=== PATIENT | female | born 1990 | race Caucasian/White ===

== ENCOUNTER 2020-05-23 10:36 | Outpatient (CLI) | payer OTHER, SELFPAY ==
--- NOTE | 2020-05-23 10:57 | ECG_ITS ---
Measurements Intervals [place] Rate: 66 P: 56 OK: 148 QRS: 46 QRSD: 99 T: 34 QT: 398 QTc: 417 Interpretive Statements SINUS RHYTHM INCOMPLETE RIGHT BUNDLE BRANCH BLOCK BORDERLINE ECG Electronically Signed On 05-23-2020 11:55:33 CDT by Meir Woodson D.O.
--- NOTE | 2020-05-26 12:25 | WPDHOLTEREM ---
Holter/Event Monitor Holter/Event Monitor Date of procedure: 05/23/20 Procedure Type: 48 hour holter monitor Indications: Palpitations Conclusion: 1. 48 hour holter monitor on 05/23/20. 2. Underlying rhythm is sinus rhythm. HR range 56-130 bpm; average HR 80 bpm. 3. There is 1 premature supraventricular complex. No supraventricular tachycardia. 4. There are 14 premature ventricular complexes. No ventricular tachycardia. 5. No sinoatrial or atrioventricular blocks. No significant pauses greater than 2 seconds. 6. No symptoms available for correlation.
== END 2020-05-23 10:37 | disposition home or self-care (01) ==
PROVIDERS: PCP Internal Medicine; Visit Provider Clinical Nurse Specialist
DX: R00.2 Palpitations (principal); I45.10 Unspecified right bundle-branch block
CPT/HCPCS: 93005; 93225; 93226

== ENCOUNTER 2022-04-09 14:31 | Outpatient (CLI) | payer OTHER, SELFPAY ==
[2022-04-09 19:03] LABS: Hematocrit 39.8 % (37.0-47.0); Hemoglobin 13.4 g/dL (12.0-15.0); Mean Corpuscular HGB Conc 33.7 g/dl (32-36); Mean Corpuscular Hemoglobin 30.4 pg (26-34); Mean Corpuscular Volume 90.2 fl (80-100); Mean Platelet Volume 9.1 fl (7.4-10.4); Platelet Count Result 347 k/mm3 (150-375); Red Blood Count 4.41 M/mm3 (4.2-5.4); White Blood Count 11.4 K/mm3 (4.5-10.0)
[2022-04-09 19:14] LABS: Anion Gap 16 mmol/L (8-16); Blood Urea Nitrogen 9 mg/dL (7-17); Carbon Dioxide 23 mmol/L (22-30); Chloride 102 mmol/L (98-107); Estimated Glomerular Filt Rate > 60; Glucose 109 mg/dL (65-110); Potassium 3.3 mmol/L (3.4-5.0); Sodium 141 mmol/L (137-145)
== END 2022-04-09 14:32 | disposition home or self-care (01) ==
LOC: ANHGOSHLAB 14:33
PROVIDERS: PCP Internal Medicine; Visit Provider Internal Medicine
DX: N89.8 Other specified noninflammatory disorders of vagina (principal); R31.9 Hematuria, unspecified
CPT/HCPCS: 36415; 80048; 85027

== ENCOUNTER → 2022-04-17 13:59 | Outpatient (CLI) | payer OTHER, SELFPAY ==
--- NOTE | ~2022-04-17 | CT_ITS ---
EXAMINATION: CT abdomen pelvis wo/w con DATE: 04/17/2022 14:44 INDICATION: Hematuria. History of left renal stones. TECHNIQUE: Computed tomography (CT) of the abdomen and pelvis was performed without and with 130 cc O mnipaque 350 intravenous contrast. The dose-length product was 1560.26 mGy-cm. Automated exposure con trol and iterative reconstruction technique were employed. 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 No significant pleural or pericardial effusion. Heart size normal. No signi ficant vascular abnormality. No lymphadenopathy. The liver, spleen, pancreas, adrenal glands and right kidney are unremarkable. There are 2 left renal stones, largest measuring 5 mm. No ureteral stones or hydronephrosis. Gallbladder is present. Nonobs tructive bowel gas pattern. There are small subcentimeter hypodensities of the left kidney, most like ly benign cysts. Ureters are normal in course and caliber. Bladder is unremarkable. No free air or fr ee fluid. No acute osseous abnormality. IMPRESSION: 1. Nonobstructing left nephrolithiasis. Reviewed, dictated and finalized at location A.
[2022-04-17 14:25] LABS: Estimated Glomerular Filt Rate > 60
== END ==
PROVIDERS: PCP Internal Medicine; Visit Provider Internal Medicine
DX: R31.9 Hematuria, unspecified (principal); N20.0 Calculus of kidney
CPT/HCPCS: 74178; Q9967

== ENCOUNTER 2023-12-24 12:46 | Outpatient (CLI) | payer OTHER, SELFPAY ==
--- NOTE | ~2023-12-24 | MMUS_ITS ---
EXAMINATION: MM diagnostic abhishek BI w alexander, US breast BI complete HISTORY: Increased density of the left breast felt by physician. TECHNIQUE: Additional 3-D tomosynthesis images of the breasts were performed and synthetic 2-D images were generated. CAD analysis was submitted and interpreted. High resolution bilateral complete breas t ultrasound was performed. COMPARISON: None BREAST PARENCHYMAL COMPOSITION: Dense: The breasts are heterogeneously dense, which may obscure small masses FINDINGS: MAMMOGRAPHIC FINDINGS: The breasts are symmetric. There are no suspicious masses, calcifications or architectural distortion in either breast to suggest malignancy. ULTRASOUND: Complete bilateral US of all 4 quadrants of the breasts and retroareolar region was reviewed. In the left breast at 1:00, 5 cm from the nipple there is a 5 mm cyst. No suspicious masses are identified i n either breast to suggest malignancy. IMPRESSION: 1. No evidence for malignancy in either breast. 2. Recommend follow-up bilateral screening mammogram beginning at age 40. BI-RADS CATEGORY 2 - BENIGN FINDINGS Reviewed, dictated and finalized at location B. IMPRESSION: 1. No evidence for malignancy in either breast. 2. Recommend follow-up bilateral screening mammogram beginning at age 40. BI-RADS CATEGORY 2 - BENIGN FINDINGS
== END 2023-12-24 12:47 | disposition home or self-care (01) ==
PROVIDERS: PCP Internal Medicine; Visit Provider Obstetrics & Gynecology
DX: R92.333 Mammographic heterogeneous density, bilateral breasts (principal)
CPT/HCPCS: 76641; 77062; 77066; G0279

== ENCOUNTER 2025-01-18 14:42 | Outpatient (CLI) | payer OTHER, SELFPAY ==
--- NOTE | ~2025-01-18 | US_ITS ---
EXAM: PELVIC ULTRASOUND HISTORY: N92.0 - Excessive and frequent menstruation with regular ... COMPARISON: None FINDINGS: UTERUS: 9.0 x 5.1 x 4.3 cm. The uterus is anteverted and anteflexed. The endometrial complex measures 10 mm. Fluid is present within the cervix. RIGHT OVARY: The right ovary is unremarkable in echogenicity and size measuring 2.2 x 2.1 x 2.4 cm. Dopplerable flow is identified. LEFT OVARY: The left ovary is increased in size measuring 5.2 x 4.4 x 3.3 cm Dopplerable flow is identified. The left ovary is made up of 2 separate areas of decreased low level homogeneous echoes. The first me asures 2.4 x 1.5 x 2.5 cm. The second area within the enlarged left ovary measures 2.8 x 1.8 x 4.0 cm. These areas are avascular, possibly representing endometriomas, for which short-term follow-up is rec ommended. No free fluid is identified within the pelvis. IMPRESSION: Findings within the left ovary which are most suggestive of endometriomas, as detailed above for whic h short-term follow-up is recommended. Fluid within the cervix. Reviewed, dictated and finalized at location A. IMPRESSION: Findings within the left ovary which are most suggestive of endometriomas, as d etailed above for which short-term follow-up is recommended. Fluid within the cervix.
== END 2025-01-18 14:43 | disposition home or self-care (01) ==
PROVIDERS: PCP Internal Medicine; Visit Provider Obstetrics & Gynecology
DX: N92.0 Excessive and frequent menstruation with regular cycle (principal)
CPT/HCPCS: 76830; 76856

== ENCOUNTER 2025-03-10 01:31 | Day surgery (SDC) | payer OTHER, SELFPAY ==
[2025-03-04 16:33] VITALS: BMI 32.8
--- NOTE | 2025-03-04 17:14 | PC.NURSE ---
Report to the Outpatient Waiting Room, entrance under the green pavilion located off [facility], at 0700 on 03-10-25. Planned Procedure Time: 0900.? Time changes happen often and if your time is changed the preop area will call you the afternoon before. - You and your visitor will be asked to self-screen and do not enter if you have any COVID symptoms. Please call surgeon if you need to reschedule. - A mask is optional within the hospital at this time. Patients may have clear liquids (water, carbonated beverages, clear teas, apple juice) until 3 hours prior to surgery with a maximum of 20 ounces. - No food from midnight until time of surgery and no smoking, or chewing tobacco (or any form of nicotine). No chewing gum, candy or mints. - Infants may have breast milk until 4 hours before surgery, infant formula 6 hours prior to surgery. - Children will be allowed to drink immediately following surgery.? If applicable, please bring a bottle or sippy cup to assist with drinking. Juice, water, soda, and popsicles are readily available.? For infants on formula, please bring formula the day of surgery.? Pacifiers are allowed. Take only the following medications with a SIP of water on the morning of surgery: None DO NOT STOP ANY OF YOUR OTHER PRESCRIPTION MEDICATIONS PRIOR TO SURGERY EXCEPT THE FOLLOWING Hold all vitamins and supplements for 3 days per anesthesiologist. Medications to discontinue per physician: N/A Please no make-up, nail cypriot, hairspray, perfume, deodorant, or body powder the day of surgery.? No jewelry (including any body piercings) or valuables the day of surgery, leave them at home.? Please take a shower or bath the night before, or the morning of, surgery with an antibacterial soap.? Wear comfortable, loose fitting clothing.? Children are encouraged to wear pajamas. - Jewelry must be removed prior to entering the operating room.? Rings and piercings that are not removed may be cut off. - The hospital will not accept responsibility for valuables.? - Please leave all valuables, including medications, at home the day of surgery. If you are going home after surgery, a licensed transit driver must drive you home.? - NO public transportation without another adult if you receive anesthesia. - We recommend that an adult stay with you for 24 hours following discharge. - We also recommend that you do not drive, make important decision, drink alcoholic beverages, or take any drugs that were not prescribed by your health care provider for at least 24 hours after your discharge time. For Pediatric surgeries, we recommend two adults accompany the child home. Follow any additional instructions given to you from your surgeon. Telephone instructions given to Yajaira Mcbride and asked if any additional questions and then verbalized understanding. Patient advised to call surgeon office or pre surgery nurse liaison [phone] if any additional questions.
[2025-03-10] VITALS (10 sets, daily range): BP systolic 115–141; BP diastolic 73–97; PULSE 58–82; RESP 9–16; TEMP 36.4–36.6; O2SAT 93–100
--- OUTSIDE RECORDS SUMMARY | 2025-03-10 01:34 | XMS_ITS | Continuity of Care Document ---
Author Organization [facility] Address [address] [place] [address] [address] [place] [address] Phone Care Team Providers Care Loan Processor Name Role Phone Vargas OD, Pravin Unavailable Unavailable Advance Directives Directive Yes / No Effective Date File Name No Information Encounters Encounter Description Practice Location Reason(s) For Visit Diagnoses Date Provider Providers Copied on Encounter [facility], [id number] [place] [address] [address], [place], [place], [id number], [place] tel:[phone] [facility] No Information Apr-2 4-200 4 Vargas OD Pravin. [address] , [address], [place], [address], [place]. tel:[phone] Family History Family Member Type Diagnosis Age At Onset No Information Payers Payer name Insurance type Covered green party ID Authoriza tion(s) No Information Social History Type Description Quantity Date Captured Comments Sex Female Smoking Status No Information Chief Complaint And Reason For Visit No Information Reason For Referral Reason For Referral No Information History Of Present Illness Encounter Date Complaint History Of Prese nt Illness No Information Functional Status Date Functional Assessmen t No Information Instructions Date Instruction Additional Infor mation No Information Assessments Type Assessment Date No Information Patient Care Teams Name Effective Dates (start - stop) Status Members No Information
--- OUTSIDE RECORDS SUMMARY | 2025-03-10 01:34 | XMS_ITS | Clinical Summary ---
Author Organization [employer] [address] - [address] [facility] [address] [place] [address] Phone Care Team Providers Care Senior Cisco Network Engineer Name Role Phone Unavailable Primary Care Provider Unavailabl e Social History Tobacco Use Types Packs/Day Years Used Date Smoking Tobacco: Never Assessed Comments Unknown Sex and Gender Information Value Date Recorded Sex Assigned at Not on file Legal Sex Female 8:49 AM CDT Gender Identity Not on file Sexual Orientation Not on file Plan of Treatment Health Maintenance Due Date Last Done Comments HPV VACCINES (1 - 3-dose series) 10/09/2003 DTAP/TDAP/TD VACCINES (1 - Tdap) 10/09/2007 HEPATITIS B VACCINES (1 of 3 - 19+ 3-dose series) 09/26 HPV/Cotest (21-29) 2009 CERVICAL CANCER SCREENING 2018 HPV/Cotest (30-65) 2018 PAP SMEAR 2018 INFLUENZA VACCINE (#1) 2025 Insurance [facility] [employer] PPO [id number]
--- OUTSIDE RECORDS SUMMARY | 2025-03-10 01:34 | XMS_ITS | Encounter Summary ---
Author Organization [facility] Address [address] [place] [address] Care Team Providers Care Advice Nurse Name Role Phone Unavailable Primary Care Provider Unavailabl e Encounter Details Date Type Department Care Team (Late st Contact Info) Description 10/05/2024 Lab Requisition [facility] - DermPath Lab [address] [facility] [facility] [place] [address] Sierra Johnson DO [address] [facility] [address] [place] [address] Social History Tobacco Use Types Packs/Day Years Used Date Smoking Tobacco: Never Assessed Comments Unknown Sex and Gender Information Value Date Recorded Sex Assigned at Not on file Legal Sex Female 1:46 PM CDT Gender Identity Not on file Sexual Orientation Not on file documented as of this encounter Plan of Treatment Not on file documented as of this encounter Procedures Procedure Name Priority Date/Time Associated Diagnosis Comments DERMATOPATHOLOGY Routine 10/05/2024 1:27 PM CDT documented in this encounter Results * DERMATOPATHOLOGY (10/05/2024 1:27 PM CDT) Case Report Dermatopathology Report Case: [id number] Authorizing Provider: Sierra Johnson DO Collected: 10/05/2024 01:27 PM Ordering Location: [facility] - Received: 10/07/2024 07:27 AM DermPath Lab Pathologist: Salvador Gomez MD Specimen: Skin, right medial breast 2:25 PM CDT DERMATOPATHOLOGY LABORATORY Final Diagnosis Specimen A. SKIN, right medial breast: BENIGN VERRUCOUS KERATOSIS (L82.1) 2:25 PM CDT DERMATOPATHOLOGY LABORATORY at 1425 CDT Clinical History ISK, R/O Atypia 2:25 PM CDT DERMATOPATHOLOGY LABORATORY Gross Description Specimen A: Received is one formalin filled container labeled with the patient's name and designated right medial breast. The specimen consists of a shave biopsy measuring 5x5x1 mm. Jar 0. 2:25 PM CDT DERMATOPATHOLOGY LABORATORY Microscopic Description Specimen A. SKIN, right medial breast: Sections show hyperkeratosis, papillomatosis, hypergranulosis, and acanthosis. These histological findings can be seen in a verruca vulgaris or a seborrheic keratosis. 2:25 PM CDT DERMATOPATHOLOGY LABORATORY Disclaimer An external and internal positive and negative controls are appropriate for the histochemical, immunohistochemical and immunofluorescence stain(s) in this case (if any), except where stated explicitly. The performance characteristics of the stain(s) cited in this report were developed and its performance characteristic determined by the Dermatopathology Laboratory at [facility], directed by Dr. Latesha Gomez. These tests need not be, and therefore are not, approved by the [place] Food and Drug Administration. The tests are used for clinical purposes. Billing Codes Specimen Charges Stain Charges 30771 1 2:25 PM CDT DERMATOPATHOLOGY LABORATORY Embedded Images 2:25 PM CDT DERMATOPATHOLOGY LABORATORY Pathology/Cytolo gy TISSUE SPECIMEN FROM SKIN / Unknown 10/05/2024 1:27 PM CDT 10/07/2024 7:27 AM CDT Sierra Johnson DO LAB - PATHOLOGY/CYTOLOGY ORDERABLES Final Result DERMATOPATHOLOGY LABORATORY [facility] - Department of Dermatology [address] [place] [address], [facility] [phone] documented in this encounter Visit Diagnoses Not on filedocumented in this encounter
--- OUTSIDE RECORDS SUMMARY | 2025-03-10 01:34 | XMS_ITS | Continuity of Care Document ---
Author Organization [facility] Address [address] [place] [address] Phone Care Team Providers Care Drainlayer Name Role Phone Efren Lai MD Unavailable Unavailable Allergies, Adverse Reactions, Alerts Substance Reaction Status Criticality No Known allergies Advance Directives Directive Yes / No Effective Date File Name Resuscitation Not Answered N/A N/A Life Support Not Answered N/A N/A Intubation Not Answered N/A N/A Antibiotics Not Answered N/A N/A IV Fluid Support Not Answered N/A N/A Tube Feed Not Answered N/A N/A Other Directive N/A N/A WARNING:The information contained in this section is historical and is provided for information only and does not constitute a legal document or any assurance that the information is still accurate. Please verify the information with the brady of the legal document before using it for clinical purposes. Encounters Encounter Description Practice Location Reason(s) For Visit Diagnoses Date Provider Providers Copied on Encounter [facility] , [address] [facility] [address] [facility] [address], [place], [address], tel:[phone] [facility] Other symptoms referable to ankle and foot joint Joelle Schwartz. [address], [place], [place], [address]. tel:[phone] Referring Provider: Jack Masterson [facility] [address], [place], [address]. tel:[phone] Family History Family Member Type Diagnosis Age At Onset Father Problem (finding) Heart disease Sister Problem (finding) migraine Mother Problem (finding) Glioblastoma (Cause Of ) Father Problem (finding) hypertension Sister Problem (finding) ovarian cysts Mother Problem (finding) Payers Payer name Insurance type Covered constitution party ID Authoriza tion(s) No Information Social History Type Description Quantity Date Captured Comments Alcohol Use Details Caffeine Use Details Unknown Tobacco Use Status No Information Smoking Status Current every day smoker Smoking Tobacco Use Details Cigarette: No Details Available Cigarette: 0 Packs per day Sex Female Vital Signs Date / Time: Height Weight BMI Pulse Rate Blood Pressure Temperature Respiratory Rate Body Surface Area Head Circumference Head Circ. Percentile Wt./Tank. Percentile BMI percentile Pulse Ox Inhaled Ox 5:55 PM 63.00 in 165.00 lbs 29.2 3 kg/m eter (2) 112/64 mm[Hg] Chief Complaint And Reason For Visit No Information Reason For Referral Reason For Referral No Information Plan Of Treatment Date Type Action Status Referral Ordered: RADEX ANKLE COMPL MINIMUM 3 VIEWS LT ordered History Of Present Illness Encounter Date Complaint History Of Prese nt Illness No Information Functional Status Date Functional Assessmen t No Information Instructions Date Instruction Additional Infor mation No Information Assessments Type Assessment Date No Information Patient Care Teams Name Effective Dates (start - stop) Status Members No Information
--- OUTSIDE RECORDS SUMMARY | 2025-03-10 01:34 | XMS_ITS | Patient Health Record ---
Author Organization [facility] Address [address] [place] [address] Care Team Providers Care Nurse Prn Name Role Phone Mayco Eaton Unavailable [phone] Reason For Referral No Information Medications Medication SIG (Take, Route, Fr equency, Duration) Notes Start Date End Date Status metroNIDAZOLE 0.75 % Vaginal Active Sertraline HCl 25 MG Oral Active Phentermine HCl 37.5 MG Oral Active Sertraline HCl 50 MG Oral Active Topiramate 25 MG Oral Act yvette Clindesse 2 % Vaginal Active ALPRAZolam 0.25 MG Oral A ctive Doxepin HCl 10 MG Oral Ac tive Plan Of Treatment No Information Insurance Providers Payer Name Payer Address Payer Phone Subscriber Number Group Number Insured Name Patient Relationship to Insured Coverage Start Date Coverage End Date [facility] [address] [place] [phone] [id number] JUAN A FITZGERALD Self - patient is the insured
--- OUTSIDE RECORDS SUMMARY | 2025-03-10 01:34 | XMS_ITS | Clinical Summary ---
Author Organization [facility] Address [address] [place] [address] Care Team Providers Care Field Property Loss Specialist Name Role Phone Unavailable Primary Care Provider Unavailabl e Source Comments [facility],non-owned Affiliates and Associated Physician Practices is amultiple site organization consisting of ambulatory clinics and hospital sitesin [place], [place], [place] and [place]. This disclosure is being madepursuant to the Care Everywhere program and may not contain all information available regarding this patient. Last updated 18.[facility] Social History Tobacco Use Types Packs/Day Years Used Date Smoking Tobacco: Never Assessed Comments Unknown Sex and Gender Information Value Date Recorded Sex Assigned at Not on file Legal Sex Female 1:46 PM CDT Gender Identity Not on file Sexual Orientation Not on file Plan of Treatment Health Maintenance Due Date Last Done Comments HIV SCREENING 10/09/2003 HEPATITIS C SCREENING 10/04/2006 DTAP/TDAP/TD VACCINES (1 - Tdap) 10/09/2007 HEPATITIS B VACCINE (1 of 3 - 19+ 3-dose series) 10/09/2007 PAP SMEAR 2009 HPV VACCINE (1 - 3-dose SCDM series) 10/09/2015 COVID-19 VACCINE (1 - 2023-2 5 season) 2024 DEPRESSION SCREENING 07/29/2024 INFLUENZA VACCINE (#1) 2025 ZOSTER VACCINE (1 of 2) 2038 HIB VACCINE Aged Out No longer eligi ble based on patient's age to complete this topic MENINGOCOCCAL (Group B) VACC INE SHARED DECISION-MAKING Aged Out No longer eligibl e based on patient's age to complete this topic MENINGOCOCCAL GROUPS A/C/Y/W VACCINE Aged Out No longer eligible b ased on patient's age to complete this topic PNEUMOCOCCAL VACCINE Aged Out No long er eligible based on patient's age to complete this topic Insurance [facility]
--- OUTSIDE RECORDS SUMMARY | 2025-03-10 01:34 | XMS_ITS | Clinical Summary ---
Author Organization [facility] Address [address] [place] [address] Care Team Providers Care Chip Person Name Role Phone Bessy Ki Christine DO Primary Care Provider [phone] Allergies No known active allergies Medications No known medications Family History Medical History Relation Comments Heart Disease Father Hypertension Father MD Father MD Maternal Grandfather Cancer Maternal Grandmother Cancer Mother Early Mother MD Paternal Grandfather Cancer Paternal Grandmother Relation Status Comments Father Alive Maternal Grandfather Maternal Grandmother Mother Paternal Grandfather Paternal Grandmother Social History Tobacco Use Types Packs/Day Years Used Date Smoking Tobacco: Every Day Electronic Cigarettes Smokeless Tobacco: Never Tobacco Cessation:Ready to Q uit: No; Counseling Given: Yes Alcohol Use Standard Drinks/Week Comments Yes 6.7 (1 standard drink = 0.6 oz p ure alcohol) Comments No Sex and Gender Information Value Date Recorded Sex Assigned at Not on file Legal Sex Female 9:48 AM CDT Gender Identity Not on file Sexual Orientation Not on file Last Filed Vital Signs Vital Sign Reading Time Taken Comments Blood Pressure 117/69 12/31/2018 2:00 PM CDT Pulse 62 12/31/2018 2:00 PM CDT Temperature 37.1 C (98.8 F) 12/31/2018 10:01 AM CDT Respiratory Rate 13 12/31/2018 2:00 PM CDT Oxygen Saturation 98% 12/31/2018 2:00 PM CDT Inhaled Oxygen Concentration - - Weight 71.2 kg (157 lb) 12/31/2018 10:01 AM CDT Height 160 cm (5' 3) 12/31/2018 10:01 AM CDT Body Mass Index 27.81 12/31/2018 10:01 AM CDT Plan of Treatment Health Maintenance Due Date Last Done Comments Cervical Cancer Screening Pa p Smear (Age 30 to 64) Every 3 Years 1988 Annual Physical 10/09/1991 Hepatitis C 2006 DTaP, Tdap and Td Vaccines ( 1 - Tdap) 10/09/2007 Hepatitis B Vaccines (1 of 3 - 19+ 3-dose series) 10/09/2007 Pneumococcal Vaccine: Pediat rics (0 to 5 Years) and At-Risk Patients (6 to 49 Years) (1 of 2 - PCV) 10/09/2007 HPV Vaccines (1 - 3-dose SCD M series) 10/09/2015 Cervical Cancer Screening Pa p with HPV Testing (Age 30 to 64) Every 5 Years 2018 Cervical Cancer Screening with HPV 2018 COVID-19 Vaccine (2023-2 5 season) 2024 Meningococcal B Vaccine Aged Out No l onger eligible based on patient's age to complete this topic Meningococcal Vaccine Aged Out No valente shakir eligible based on patient's age to complete this topic RSV Immunizations Under 20 Months Aged Out No longer eligible based on patient's age to complete this topic Insurance [facility] Care Teams Chip Person Relationship Specialty Start Date End Date Ki Doherty DO [address] [place] [address] PCP - General INTERNAL MEDICINE 12/31/18
--- OUTSIDE RECORDS SUMMARY | 2025-03-10 01:34 | XMS_ITS | Continuity of Care Document ---
Author Organization [facility] Address [address] [place] [address] Phone Care Team Providers Care Thread Milling Machine Set Up Operator Name Role Phone Unavailable Unavailable Unavailable Advance Directives Directive Yes / No Effective Date File Name No Information Encounters Encounter Description Practice Location Reason(s) For Visit Diagnoses Date Provider Providers Copied on Encounter [facility], [address] [facility], [place], [place], [id number], tel:[phone] [facility] No Information No Information Referring Provider: KIERA ROSARIO, [address] [place] [address], [id number]. tel:[phone] Family History Family Member Type Diagnosis Age At Onset No Information Payers Payer name Insurance type Covered alliance party ID Authoriza tiarlen(s) [facility] POS [id number] CI [id number] Social History Type Description Quantity Date Captured Comments Sex Female Smoking Status No Information Chief Complaint And Reason For Visit No Information History Of Present Illness Encounter Date Complaint History Of Prese nt Illness No Information Instructions Date Instruction Additional Infor mation No Information Assessments Type Assessment Date No Information
--- NOTE | 2025-03-10 07:15 | WPDHPUPDATE1 ---
History and Physical Update Update Date/Time: 03/10/25 07:15 History and Physical has been reviewed, including an updated exam of the patient. There are NO changes in the patient's condition. Risks, benefits, and alternatives have been discussed and questions answered. Patient agrees to proceed with procedure.
[2025-03-10] MEDS: LACTATED RINGERS 1,000 ML 30 ML IV CONT (07:40)
[2025-03-10] MEDS: ACETAMINOPHEN 500 MG TABLET 1000 MG PO (07:40)
[2025-03-10] MEDS: KETOROLAC 15 MG/ML VIAL (*BKC) IV PUSH (07:45)
--- NOTE | 2025-03-10 08:53 | WPDANESEPPF ---
Anes - Initial Pre Proc Eval Procedure: Operation Date: 03/10/25 09:00 Proposed Procedures p Hysteroscopy Dilation and Curettage, Diana Endometrial Ablation, Laparoscopic Bilateral Salpingectomy - Brijesh Apple MD Date/Time: 03/10/25 08:53 Surgeon: Brijesh Apple MD Pre Op Diagnosis: Menorrhagia, desires Sterilization Patient Data Age: 34 Gender: F Height: 1.6 m Weight: 86.4 kg Last Vital Signs Temp 36.6 C 03/10/25 08:00 Pulse 82 03/10/25 08:00 Resp 16 03/10/25 08:00 BP 126/88 03/10/25 08:00 Pulse Ox 100 03/10/25 08:00 O2 Del Method Room Air 03/10/25 08:00 Allergies Allergy/AdvReac Type Severity Reaction Status Date / Time No Known Allergies Allergy Unknown Verified 03/10/25 07:57 Home Medications ?Medication ?Instructions ?Recorded ?Confirmed ?Type No Home Medications 02/24/25 03/04/25 History Patient hx anesthesia problems: none Family hx anesthesia problems: none Results Review: All pre-operative results and documents have been reviewed as part of the pre-operative evaluation. [facility] Past Medical History Medical History Chronic eczematous otitis externa Bacterial vaginosis Anxiety and depression Surgical History Surgical History Delivery by section Family History Family History Father Hypertension Family history of coronary artery disease Mother Patient's mother is Glioblastoma Grandparent Family history of malignant neoplasm of male breast Social History Social History Smoking packs per day: 1 Smoking cigarettes per day: 20.0 Years smoked: 13 Smoking pack-years: 13.00 Smoking status: Former smoker Tobacco type: cigarettes and e-cigarettes/vaping Second hand tobacco smoke exposure: No Smoking end date: 12/27/17 Additional smoking assessment comments: currently vapes Alcohol intake: current Drinks per week: 12 Alcohol use details: wine Substance use: never Substance use type: does not use Living arrangements: with family Spiritual care concerns: No Anes - Eval Final PreProcedure Day of Procedure 03/10/25 08:53 Patient weight: overweight Heart: regular rate and rhythm Lungs: clear to auscultation Airway: Mallampati scale class III Neurological: alert and oriented Last oral intake: >/= 8 hours ASA classification: II Emergent: no Anesthetic plan: proceed Anesthesia type and monitoring: general ETT and standard monitoring Results Review: All pre-operative results and documents have been reviewed as part of the pre-operative evaluation. Informed Consent: The patient's anesthetic plan and its attendant risks and benefits were discussed with the patient/family/POA. Questions were solicited and answers provided to the satisfaction of the patient/family/POA.
[2025-03-10] MEDS: SCOPOLAMINE 1 MG PATCH 1 PATCH TRANSDERM (09:00)
[2025-03-10] MEDS: ceFAZolin 2 GM in SODIUM CHLORIDE 0.9% IV 50 ML 100 ML IVPB (09:11)
[2025-03-10 09:28] LABS: BEDSIDEPREGUCG Negative (Negative)
[2025-03-10] MEDS: BUPivacaine HCL 0.5% 10 ML AMP INFILTRATE (09:40)
--- NOTE | 2025-03-10 10:23 | S_PTH ---
PATIENT: Yajaira Mcbride LOC: [facility] U#:[id number] AGE/SX: 34/F ROOM: RE03/10/[address]: Brijesh Apple MD : 1990 BED: DIS: 03/10/2025 SPEC #: [id number] RECD: 03/10/25 13:26 STATUS: CANDIDO REQ #: [id number] EDUARDO: 03/10/25 10:[address]: Brijesh Apple DEPT: [facility] Surgical RECD BY: Erin Quiros ENTERED: 03/10/25 13:26 SP TYPE: Surgical OTHR DR: Ki Doherty DO Tissues: A - Endometrial Curettings B - Fallopian Tube Bilateral Procedures: Gross and Microscopic Level 2 Hematoxylin and Eosin Stain Gross and Microscopic Level 4
[2025-03-10] MEDS: fentaNYL CITRATE INJ (*CRX) 100 MCG/2 ML VIAL 25 MCG IV PUSH ×4 (10:47→11:10)
--- NOTE | 2025-03-10 10:47 | P.OP_ITS ---
Procedure Note - Detailed Date of Procedure 03/10/25 Pre-op Diagnosis Menorrhagia, desires Sterilization Post-op Diagnosis Other (Abdominal adhesions) Procedure Performed 1. Laparoscopic bilateral salpingectomy 2. Lysis of adhesions 3. Diana endometrial ablation Surgeon Brijesh Apple MD Anesthesia General Indications Heavy periods and request for sterilization Findings Large adhesion band of omentum to mid abdomen, requiring lysis of adhesions to visualize pelvis, normal fallopian tubes and ovaries, no endometriosis, small left ovarian cyst Description of Procedure After informed consent was obtained patient was taken to the operating room and general endotracheal anesthesia was administered. She was placed in low lithotomy need prep prepped sterile fashion. Attention was turned to the vagina speculum inserted single-tooth tenaculum placed on anterior lip of the cervix. [place] uterine manipulator placed into the cervical canal. The speculum was removed. Attention was then turned to the ab domen. 0.5% Marcaine injected subcutaneously prior to each incision. An incision was made at the umbilicus and a Veress needle was inserted into the abdomen confirmation into the abdomen obtained with free flow of fluid and normal peritoneal pressures. A pneumoperitoneum of 15 mm per mercury was obtained. The 5 mm port was inserted under laparoscopic visualization. Patient was placed in Trendelenburg position. Attention was turned to the left side of the abdomen and a large band of omentum from mid to abdomen to left visualized. Therefore attention turned to right side of abdomen and 5mm port inserted. It took approximately 10 minutes to lyse adhesions of omentum that was obstructing pelvis. Hemostasis noted. Using the LigaSure the right fallopian tube was excised to near the entrance to the uterus. This was removed through the port. Attention was then turned to the left fallopian tube which was ligated to near entrance to the uterus. The fallopian tubes were removed through the 5 mm port. Hemostasis was noted at both sites. Patient was taken out of Trendelenburg position the pneumoperitoneum was released and the skin incisions were closed in a subcuticular fashion with 4 O Vicryl. Attention was turned to the vagina. Speculum was inserted. [place]oka manipulator was removed. A single-tooth tenaculum placed on the anterior lip of the cervix. The uterus was sounded to 8.5 cm. The cervix was dilated to an 8 Hernandez dilator. The cervical length was 4cm. The hysteroscope was inserted into the cavity. The findings were a normal uterine cavity with proliferative endometrial tissue. The hysteroscope was removed. A curettage was performed. The Diana ablation instrument was inserted into the cavity. Cavity assessment was performed and confirmed intact. The ablation was enabled. After 120 seconds the Diana stopped. The ablation instrument was removed. Unable to obtain post ablation picture due to distending fluid not flowing for distension. Sponge count correct. The patient taken to recovery in stable condition. Estimated Blood Loss 5 Drains No Packing No Pathology Yes (right and left fallopian tubes) Complications No immediate complications Condition Stable Disposition Same day [facility] Billing Surgery - Charge Forward: Surgery Billing
[2025-03-10] MEDS: oxyCODONE HCL (*CRX) 5 MG TAB IR PO (12:20)
== END 2025-03-10 12:48 | disposition home or self-care (01) ==
PROVIDERS: PCP Internal Medicine; Visit Provider Obstetrics & Gynecology
PROC: 0UDB8ZZ Extraction of Endometrium, Via Natural or Artificial Opening Endoscopic (ICD-10-PCS; CPT 58558; principal; 2025-03-10 09:00)
DX: Z30.2 Encounter for sterilization (principal); N83.292 Other ovarian cyst, left side; K66.0 Peritoneal adhesions (postprocedural) (postinfection); G89.18 Other acute postprocedural pain; H60.549 Acute eczematoid otitis externa, unspecified ear; F17.290 Nicotine dependence, other tobacco product, uncomplicated; F41.8 Other specified anxiety disorders; Z98.890 Other specified postprocedural states; Z80.3 Family history of malignant neoplasm of breast; Z82.49 Family history of ischemic heart disease and other diseases of the circulatory system
CPT/HCPCS: 58661; 58563; 88302; 88305; J0690; A9270; J1100; J1885; J2250; J2270; J2405; J2704; J3010; J7120